=== PATIENT | female | born 1990 | race Native Hawaiian/Other Pacific Islander ===

== ENCOUNTER 2016-11-07 18:55 | Emergency (ER) | payer BC, MEDICAID ==
[~2016-11-07] VITALS: Ht 152.4 cm; Wt 86.0 kg
[~2016-11-07 18:55] MED LIST: PREN1TAB52 PO
[2016-11-07 19:05] VITALS: BP 139/94
[2016-11-07] MEDS ORDERED: SULFAMETHOX/TRIMETH DS 800-160 MG/TABLET PO ONE (19:30)
[2016-11-07] MEDS ORDERED: CEPHALEXIN MONOHYDRATE 500 MG CAPSULE PO ONE (19:30)
[2016-11-07] MEDS ORDERED: IBUPROFEN 800 MG TABLET PO ONE (19:30)
== END 2016-11-07 19:51 | disposition home or self-care (01) ==
LOC: EMS 18:57
DX: L03.113 Cellulitis of right upper limb (principal); Z88.0 Allergy status to penicillin
CPT/HCPCS: 99284

== ENCOUNTER 2017-05-22 14:29 | Emergency (ER) | payer SELFPAY ==
[~2017-05-22] VITALS: Ht 152.4 cm; Wt 90.0 kg
[2017-05-22] MEDS ORDERED: DEXAMETHASONE SOD PHOS 4 MG/ML 5 ML VIAL IM ONE (15:00)
[2017-05-22] MEDS ORDERED: DiphenhydrAMINE HCL 50 MG/ML VIAL IM ONE (15:00)
[2017-05-22 16:10] VITALS: BP 131/76
== END 2017-05-22 16:12 | disposition home or self-care (01) ==
LOC: EMS 14:32
DX: L50.9 Urticaria, unspecified (principal); T78.40XA Allergy, unspecified, initial encounter; Z88.0 Allergy status to penicillin; X58.XXXA Exposure to other specified factors, initial encounter
CPT/HCPCS: 96372; 99283; J1100; J1200

== ENCOUNTER 2017-10-26 17:43 | Emergency (ER) | payer MEDICAID ==
[~2017-10-26] VITALS: Ht 152.4 cm; Wt 88.6 kg
[2017-10-26] MEDS ORDERED: IBUPROFEN 800 MG TABLET PO ONE (19:45)
[2017-10-26] MEDS ORDERED: ALBUTEROL SULFATE HFA 90 MCG/PUFF 8 GM INHALER IH ONE (20:30)
[2017-10-26 20:50] VITALS: BP 119/67
== END 2017-10-26 21:00 | disposition home or self-care (01) ==
LOC: EMS 17:44
DX: J18.0 Bronchopneumonia, unspecified organism (principal); Z88.0 Allergy status to penicillin
CPT/HCPCS: 71046; 94640; 99284; J3535

== ENCOUNTER 2018-09-25 12:47 | Emergency (ER) | payer MEDICAID ==
[~2018-09-25] VITALS: Ht 152.4 cm; Wt 90.9 kg
[2018-09-25] MEDS ORDERED: LORATADINE 10 MG TABLET PO ONE (15:15)
[2018-09-25] MEDS ORDERED: PredniSONE 20 MG TABLET PO ONE (15:15)
[2018-09-25] MEDS ORDERED: IBUPROFEN 800 MG TABLET PO ONE (15:45)
[2018-09-25 16:16] VITALS: BP 138/90
== END 2018-09-25 16:19 | disposition home or self-care (01) ==
LOC: EMS 14:43
DX: L25.9 Unspecified contact dermatitis, unspecified cause (principal); R03.0 Elevated blood-pressure reading, without diagnosis of hypertension; Z88.0 Allergy status to penicillin
CPT/HCPCS: 99284; J7512

== ENCOUNTER 2018-09-27 16:32 | Emergency (ER) | payer SELFPAY ==
[~2018-09-27] VITALS: Ht 152.4 cm; Wt 90.9 kg
[2018-09-27 17:37] VITALS: BP 133/89
== END 2018-09-27 19:41 | disposition home or self-care (01) ==
LOC: EMS 16:33
DX: L25.9 Unspecified contact dermatitis, unspecified cause (principal); R03.0 Elevated blood-pressure reading, without diagnosis of hypertension; Z88.0 Allergy status to penicillin